=== PATIENT | male | born 2000 | race American Indian/Alaskan Native ===

== ENCOUNTER 2019-01-02 02:19 | Emergency (ER) | payer SELFPAY ==
[2019-01-02 02:39] VITALS: BP 144/84
--- NOTE | 2019-01-02 04:44 | Emergency Department Report ---
ED Male HPI - General Chief complaint: Urogenital-Male Stated complaint: GROIN ISSUES Time Seen by Provider: 01/02/19 04:31 Source: patient Mode of arrival: Ambulatory Limitations: No Limitations - History of Present Illness Initial comments: This is a 18-year-old male nontoxic, well nourished in appearance, no acute signs of distress presents to the ED with c/o of rash and itching to bilateral groin area. Patient denies any testicular pain or swelling. Patient denies any penile ulcers or lesions. Deneis any peinle dishcarge. Patient denies any nausea, vomiting, chest pain, shortness of breathe, fever, chills, headache, back pain, numbness, tingling, stiff neck. Patient denies any urinary symptoms. Patient denies any allergies or PMH. -: days(s) Radiation: none Severity scale (0 -10): 0 Improves with: none Worsens with: none rash. denies: discharge, swelling, mass, urinary retention, blood in urine, dysuria, fever, nausea/vomiting, incontinence - Related Data Previous Rx's Medication Instructions Recorded Last Taken Type Clotrimazole 1% [Lotrimin 1%] 1 applic TP BID #1 tube 01/02/19 Unknown Rx Allergies Allergy/AdvReac Type Severity Reaction Status Date / Time No Known Allergies Allergy Verified 01/02/19 02:23 ED Review of Systems ROS: Stated complaint: GROIN ISSUES Other details as noted in HPI Constitutional: denies: chills, fever Eyes: denies: eye pain, eye discharge, vision change ENT: denies: ear pain, throat pain Respiratory: denies: cough, shortness of breath, wheezing Cardiovascular: denies: chest pain, palpitations Endocrine: no symptoms reported Gastrointestinal: denies: abdominal pain, nausea, diarrhea Genitourinary: denies: urgency, dysuria Musculoskeletal: denies: back pain, joint swelling, arthralgia Skin: denies: rash, lesions Neurological: denies: headache, weakness, paresthesias Psychiatric: denies: anxiety, depression Hematological/Lymphatic: denies: easy bleeding, easy bruising ED Past Medical Hx - Past Medical History Previous Medical History?: No - Surgical History Past Surgical History?: No - Social History Smoking Status: Current Every Day Smoker Substance Use Type: None - Medications Home Medications: Home Medications Medication Instructions Recorded Confirmed Last Taken Type Clotrimazole 1% [Lotrimin 1%] 1 applic TP BID #1 tube 01/02/19 Unknown Rx ED Physical Exam - General Limitations: No Limitations General appearance: alert, in no apparent distress - Head Head exam: Present: atraumatic, normocephalic - Neck Neck exam: Present: normal inspection, full ROM. Absent: tenderness, meningismus, lymphadenopathy - exam: Present: normal inspection. Absent: testicular tenderness, urethral discharge, scrotal swelling, vertical testicular lie, circumcision External exam: Present: other (bilateral rash and inner hip areas). Absent: erythema, swelling, lesions, lacerations, ecchymosis, bleeding - Extremities Exam Extremities exam: Present: normal inspection, full ROM - Back Exam Back exam: Present: normal inspection, full ROM. Absent: tenderness, CVA ten derness (R), CVA tenderness (L), muscle spasm, paraspinal tenderness, vertebral tenderness, rash noted - Neurological Exam Neurological exam: Present: alert, oriented X3, normal gait - Psychiatric Psychiatric exam: Present: normal affect, normal mood ED Course Vital Signs 01/02/19 01/02/19 02:23 02:31 Temperature 97.7 F 97.8 F Pulse Rate 69 87 Respiratory 18 18 Rate Blood Pressure 127/70 144/84 O2 Sat by Pulse 99 100 Oximetry - Reevaluation(s) Reevaluation #1: 01/02/19 04:43 Patient is speaking in full sentences with no signs of distress noted. ED Medical Decision Making - Medical Decision Making 18-year-old male that presents with jock itch. Patient is stable and was examined by me. Patient on was instructed to Follow-up with a primary care doctor in 3-5 days or if symptoms worsen and continue return to emergency room as soon as possible. At time of discharge, the patient does not seem toxic or ill in appearance. No acute signs of distress noted. Patient agrees to discharge treatment plan of care. No further questions noted by the patient. Critical care attestation.: If time is entered above; I have spent that time in minutes in the direct care of this critically ill patient, excluding procedure time. ED Disposition Clinical Impression: Jock itch Disposition: DC-01 TO HOME OR SELFCARE Is pt being admited?: No Does the pt Need Aspirin: No Condition: Stable Instructions: Jock Itch (ED) Additional Instructions: Follow-up with a primary care doctor in 3-5 days or if symptoms worsen and cont inue return to emergency room as soon as possible. Prescriptions: Clotrimazole 1% [Lotrimin 1%] 1 applic TP BID #1 tube Referrals: PRIMARY CARE, [Referring] - 3-5 Days DANTE PLATT MD [Staff Physician] - 3-5 Days [facility] [place]] - 3-5 Days Forms: Work/School Release Form(ED)
== END 2019-01-02 04:49 | disposition home or self-care (01) ==
LOC: ED 02:19
DX: B35.6 Tinea cruris (principal); Z79.899 Other long term (current) drug therapy; F17.200 Nicotine dependence, unspecified, uncomplicated
CPT/HCPCS: 99282